=== PATIENT | male | born 1975 | race Caucasian/White ===

== ENCOUNTER 2018-07-01 14:40 | Observation (INO) ==
[2018-07-01] MEDS ORDERED: ONDANSETRON 4 MG/2 ML VIAL IVP ONE (14:52)
[2018-07-01] MEDS ORDERED: MORPHINE SULFATE 2 MG/1 ML IVP ONE ×2 (14:52→18:58)
[2018-07-01] MEDS ORDERED: Lactated Ringers 1,000 ML PRIMARY IV ONE (14:52)
--- NOTE | 2018-07-01 14:57 | PDOC ---
Nausea/Vomiting/Diarrhea HPI - General Chief Complaint: Nausea / Vomiting / Diarrhea Stated Complaint: nausea,vomiting, diarrhea Date Seen by Provider: 07/01/18 Time Seen by Provider: 14:45 Source: POSITIVE: Patient, Spouse Exam Limitations: POSITIVE: No limitations Nurse's Notes Reviewed & Considered: Yes - History of Present Illness Initial Comments: 42 yo male presents to ED with complaint of nausea, vomiting, diarrhea and abdominal pain that started acutely this morning. He denies blood in stool/emesis. Denies fevers/chills. The patient and two [facility] and all three are ill with similar symptoms starting last night. Patient denies urinary complaints. Patient went to clinic this morning with his child and child tested negative for influenza. Patient reports myalgias. No Rashes. Body Location Affected: REPORTS: Abdomen Timing: REPORTS: Abrupt Duration: 4-6 hours Severity: Moderate Quality: REPORTS: Aching, Cramping, Sharpness Abdominal Pain Onset Location: REPORTS: Generalized abdomen Abdominal Pain Radiation: REPORTS: No radiation Context: REPORTS: Rest Associated Symptoms: REPORTS: Vomiting, Diarrhea, Copious Diarrhea, Abdominal Pain, Cramping, Aching, Diffuse Pain Similar Symptoms Previously: No Recent Care Received: REPORTS: Other (Patient diagnosed with diverticulitis at the beginning of month. He has finished his course of levaquin and flagyl about one week ago.) - Patient Home Medications Home Medications: Home Medications aspirin 81 mg tablet,delayed release 81 mg PO QDAY 06/11/18 Hydrocodone/Acetaminophen [[place] 7.5-325 Tablet] 1 - 2 ea PO Q6H PRN #15 tab 06/14/18 Levofloxacin Tab [Levaquin Tab] 750 mg PO DAILY #10 tab 06/14/18 metroNIDAZOLE Tab [Flagyl Tab] 500 mg PO Q8H #21 tab 06/14/18 pantoprazole 40 mg tablet,delayed release 40 mg PO BID 06/14/18 ondansetron HCl 8 mg tablet 8 mg PO TID PRN #10 tab 07/01/18 - Patient Allergies Allergies/Adverse Reactions: Allergies Allergy/AdvReac Type Severity Reaction Status Date / Time Sulfa (Sulfonamide Allergy Unknown HIVES Verified 06/14/18 17:04 Antibiotics) Past Medical History - heen HEENT History: Denies History, Cleft Palate Additional HEENT History: CLEFT PALATE REPAIR A CHILD WITH HARDWARE/CHRONIC SINUSITIS/ CURRENTLY IS BEING TREATED FOR SINUS INFECTION. DR HERR IS AWARE AND IS FINE WITH PROCEEDING WITH SURGERY ON 10/10/12. Cardiovascular History: Angina Additional Cardiovasular History: Had previous chest pain approx. 2 years ago and never found anything but told to take ASA 81 daily Respiratory History: Sleep Apnea Additional Respiratory History: CHRONIC SINUSITIS/ CURRENTLY IS BEING TREATED FOR SINUS INFECTION. DR HERR IS AWARE AND IS FINE WITH PROCEEDING WITH SURGERY ON 10/10/12. Gastrointestinal History: GERD, Diverticulitis Genitourinary History: Kidney Stones Endocrine History: Denies History Musculoskeletal History: Other (please comment) Prosthesis or Implant: Yes ([facility] IN JAW) Additional Musculoskeletal History: Patella dislocation Neurological History: Denies History, Other (please comment) Additional Neurological History: ABOUT A WEEK POST SURGERY PATIENT WENT INTO SHOWER AND PASSED OUT. EMS ALERTED AND RESPONDED. NORMAL BLOOD SUGAR AND HEART WAS NORMAL. PATIENT DID NOT GET TRANSPORTED TO HOSPITAL. THEN ON August WAS ON AN AIRPLANE FOR A 5 HOUR TRIP AND GOT HOT AND HIS KNEE WAS IN SEVERE PAIN AND PASSED OUT. INFOMED DR. HERR'S OFFICE OF THIS HAPPENING. PATIENT DID GO TO [facility] WITHIN A WEEK OF SURGERY DUE TO CALF PAIN DID ULTRASOUND NEGATIVE. DID HAVE HIS CRUTCH FALL OUT OF ARM AND JAR KNEE X2. Blood Disorders: Denies History Psychiatric History: Denies History History of Sexually Transmitted Diseases: No Cancer History: Denies History History of MDRO: No History of Other Communicable Diseases: No Alcohol Use: Rarely In the Past 12 Months, Have Used or Abuse Any Substance: None Previous Surgical History: Yes Type / Date of Surgery: RIGHT KNEE SX AUGUST 27, 2012/ BILAT SHOULDER SCOPE/ JAW SX WITH PLATES AT AGE 22/ LITHOTRIPSY WITH STENTS/ CLEFT PALATE SX A CHILD Anesthesia Reactions: No Malignant Hyperthermia: No Significant Family History: Heart disease Additional Family History: MOTHER- HEART. FATHER- HEART ROS - Limitations ROS Limitations: No Limitations Constitution: REPORTS: Chills, Weakness (generalized weakness and myalgias). DENIES: Fever, Diaphoresis Cardiovascular: REPORTS: Denies Cardiac Symptoms Respiratory: REPORTS: Denies Resp Symptoms Neurological: REPORTS: Confusion, Weakness. DENIES: Dizziness, Fainting Gastrointestinal: REPORTS: Abdominal Pain, Nausea, Vomitting, Diarrhea. DENIES: Black Stools, Bloody Stools, Constipation Endocrine: REPORTS: Denies Symptoms Musculoskeletal: REPORTS: Other (myalgias) Genitourinary: REPORTS: Flank Pain. DENIES: Discharge, Dysuria, Hematuria, Dark Urine, Difficulty Urinating Eyes: REPORTS: Denies Symptoms ENT: REPORTS: Denies Symptoms Skin: REPORTS: Denies Skin Symptoms Lympathic: REPORTS: Denies Lympathic Symptoms Immunologic: POSITIVE: Denies Symptoms Psychiatric: POSITIVE: Confusion. NEGATIVE: Anxiety, Depression, Auditory Hallucinations, Visual Hallucinations Nausea/Vomiting/Diarrhea Exam - General Appearance General Appearance: POSITIVE: Alert, Cooperative, Moderate Distress - HEENT HEENT: POSITIVE: Head Inspection Nml, Eyes Inspection Nml, Ears Inspection Nml, PERRL, EOMI, Dry Mucous Membranes - Neck Neck: POSITIVE: Supple, Normal Inspection - Respiratory Respiratory: POSITIVE: No Respiratory Distress, Breath Sounds Normal, Chest Non- Tender - Cardiovascular Cardiovascular: POSITIVE: Heart Sounds Normal, Tachycardia Peripheral Pulses: Radial (R): 2+, Radial (L): 2+, Dorsalis-pedis (R): 2+, Dorsalis-pedis (L): 2+ - Chest Chest: POSITIVE: Non Tender. NEGATIVE: Ecchymosis, Abrasion, Laceration - Abdomen Abdomen: Soft: (All Quadrants), Normal Bowel Sounds: (All Quadrants), No Splenomegaly: (All Quadrants), No Hepatomegaly: (All Quadrants), No Guarding: (All Quadrants), No Rebound: (All Quadrants), Tenderness Noted: (All Quadrants) - Back Back: POSITIVE: Normal Inspection - Skin Skin: POSITIVE: Intact, Normal For Race, Warm, Dry, No Rash - Extremities Extremity: Non-Tender: (All Extremities), Normal ROM: (All Extremities), Normal Inspection: (All Extremities), Pelvis Stable: (All Extremities) - Neurological / Psychological Neurological: POSITIVE: Affect Apporpriate, Oriented X3, vp biology Normal As Tested, Motor Normal, Sensation Normal N/V/D Progress - Results Reviewed by me Xrays/CTs/US Reviewed by me: Yes Discussed with Radiologist: No Radiology Findings: Acute diverticulitis without perforation nor abscess in sigmoid colon Lab Results Reviewed by Me: Yes CBC and BMP: 07/01/18 14:52 07/01/18 15:01 Lab Results:: Laboratory Results 07/01/18 07/01/18 07/01/18 14:52 15:01 15:10 WBC 9.13 RBC 5.31 Hgb 16.3 Hct 45.9 MCV 86.4 MCH 30.7 MCHC 35.5 RDW Std Deviation 39.6 RDW Coeff of Wero 12.8 Plt Count 294 MPV 10.2 Immature Gran % (Auto) 0.1 Neut % (Auto) 94.0 H Lymph % (Auto) 3.0 L [place] % (Auto) 2.5 L Eos % (Auto) 0.2 Baso % (Auto) 0.2 Immature Gran # (Auto) 0.01 Neut # (Auto) 8.58 Lymph # (Auto) 0.27 Band[place] # (Auto) 0.23 L Eos # (Auto) 0.02 Baso # (Auto) 0.02 WBC Morphology Comment Normal morphology Plt Morphology Comment Normal morphology RBC Morph Comment Normal morphology VBG pH 7.39 VBG pCO2 30 L VBG HCO3 18 L VBG Base Excess -7 L Sodium 140 Potassium 3.7 L Chloride 109 Carbon Dioxide 20 L Anion Gap 11 BUN 20 Creatinine 0.7 Estimated GFR > 60 BUN/Creatinine Ratio 28.57 H Glucose 105 Calculated Osmolality 292.0 Calcium 8.6 L Total Bilirubin 0.8 AST 44 ALT 70 Alkaline Phosphatase 53 Total Protein 7.3 Albumin 4.4 Globulin 2.9 Albumin/Globulin Ratio 1.50 Ur Collection Type Urine Color Urine Clarity Urine pH Ur Specific [place] Urine Protein Urine Glucose (UA) Urine Ketones Urine Occult Blood Urine Nitrate Urine Bilirubin Urine Urobilinogen Ur Leukocyte Esterase Urine RBC Urine WBC Ur Squamous Epith Cells Ur Renal Epithelial Cell Urine Crystals Urine Bacteria Urine Casts Urine Mucus Urine Trichomonas Urine Yeast Ur Culture Indicated? 07/01/18 17:10 WBC RBC Hgb Hct MCV MCH MCHC RDW Std Deviation RDW Coeff of Wero Plt Count MPV Immature Gran % (Auto) Neut % (Auto) Lymph % (Auto) [place] % (Auto) Eos % (Auto) Baso % (Auto) Immature Gran # (Auto) Neut # (Auto) Lymph # (Auto) [place] # (Auto) Eos # (Auto) Baso # (Auto) WBC Morphology Comment Plt Morphology Comment RBC Morph Comment VBG pH VBG pCO2 VBG HCO3 VBG Base Excess Sodium Potassium Chloride Carbon Dioxide Anion Gap BUN Creatinine Estimated GFR BUN/Creatinine Ratio Glucose Calculated Osmolality Calcium Total Bilirubin AST ALT Alkaline Phosphatase Total Protein Albumin Globulin Albumin/Globulin Ratio Ur Collection Type Clean catch urine Urine Color Yellow Urine Clarity Clear Urine pH 5.5 Ur Specific [place] 1.010 Urine Protein Negative Urine Glucose (UA) Negative Urine Ketones Negative Urine Occult Blood Trace-intact H Urine Nitrate Negative Urine Bilirubin Negative Urine Urobilinogen 0.2 Ur Leukocyte Esterase Negative Urine RBC None Urine WBC None Ur Squamous Epith Cells Rare Ur Renal Epithelial Cell None Urine Crystals None Urine Bacteria None Urine Casts None Urine Mucus Rare Urine Trichomonas None Urine Yeast None Ur Culture Indicated? Culture not set - Patient's Progress Pain Medication Addressed: POSITIVE: Yes Re-Examine Comment: patient remains tachycardic despite fluid bolus and pain medications. CT images show diverticulitis without perforation nor abscess. I discussed with patient about possible admission. I feel admission is in patients best interest as he recently had outpatient treatment for diverticulitis less than 3 weeks ago and appears to have a repeat episode today. He and his expressed understanding of this and they are amenable to plan for admission. Status: POSITIVE: Unchanged MDM / ED Course: 42-year-old male presents emergency department with severe abdominal pain, nausea, vomiting and diarrhea. IV line was established by nursing staff. Patient was given a bolus of lactated Ringer's. He was given IV Zofran for nausea and IV morphine for pain. Labs were obtained along with CT scan of the abdomen and pelvis. CT scan of abdomen and pelvis shows acute diverticulitis of the sigmoid colon without perforation nor abscess. Patient was subsequently given IV Rocephin and IV Flagyl he tolerated both these medications well. He continues to be tachycardic despite initial resuscitative efforts. I discussed all results with him and his and discussed potential admission. He is amenable to plan for admission. I feel admission is appropriate for him as he was treated as an outpatient less than 3 weeks ago for acute diverticulitis and appears to have a relapse of the episode now. I subsequently discussed case with Dr. Gonzalez of the hospitalist service and he accepted the patient for admission. Patient was subsequently transferred to the medical floor in stable but guarded condition. - Consult Consult (If Yes, Name of Consulting MD & Time Called): Yes (Dr. Arechiga) Consulting MD will see pt:: POSITIVE: [facility] Admit Counseled: POSITIVE: Patient, Family, RE: Lab Results, RE: Radiology Results, RE: DX, Other (Recommended admission. Patient and agree with plan of care) Patient Care Time - Estimated PCT Patient Care Time (In Minutes): 75 Vital Signs - Recent Vital Signs Vital Signs: Vital Signs (Last 8 hours) Temp Pulse Resp BP Pulse Ox 07/01/18 14:46 98.3 F 121 H 18 107/69 93 - VS Reviewed Vital Signs Reviewed: Yes Discharge Clinical Impression: Abdominal pain, Dehydration, Nausea and vomiting, Diarrhea, Diverticulitis large intestine w/o perforation or abscess w/o bleeding Discharge Disposition: Admit to Observation Condition: Fair Follow Up With: Dave Doss DNP [Primary Care Provider] - Care Transferred To: Dr. Arechiga Date Decision to Admit to Inpatient: 07/01/18 Time Decision to Admit to Inpatient: 18:15
[2018-07-01 15:08] LABS: BASOPHILS # (AUTO) 0.02 10*3/UL; BASOPHILS % (AUTO) 0.2 % (0-1); EOSINOPHILS # (AUTO) 0.02 10*3/UL; EOSINOPHILS % (AUTO) 0.2 % (0-8); Hematocrit [HCT] 45.9 % (42.0-52.0); Hemoglobin [HGB] 16.3 g/dL (14.0-18.0); LYMPHOCYTES # (AUTO) 0.27 10*3/uL; MEAN CORPUSCULAR HEMOGLOBIN 30.7 PG (27-31); MEAN CORPUSCULAR HGB CONC 35.5 g/dL (33-37); MEAN CORPUSCULAR VOLUME 86.4 FL (80-90); MEAN PLATELET VOLUME 10.2 FL (7.4-12.2); MONOCYTES # (AUTO) 0.23 10*3/UL (0.3-0.8); MONOCYTES % (AUTO) 2.5 % (5-15); NEUTROPHILS # (AUTO) 8.58 10*3/UL; RED BLOOD COUNT 5.31 10^6/uL (4.70-6.10)
[2018-07-01 15:12] LABS: PLATELET MORPHOLOGY COMMENT NORMAL MORPHOLOGY (NORM); RBC MORPHOLOGY COMMENT NORMAL MORPHOLOGY (NORM); WBC MORPHOLOGY COMMENT NORMAL MORPHOLOGY (NORM)
[2018-07-01 15:20] LABS: BLOOD UREA NITROGEN 20 mg/dL (7-22); BUN/CREATININE RATIO 28.57 (6-20); SERUM ALBUMIN 4.4 g/dL (3.5-4.8)
[2018-07-01 15:34] LABS: VENOUS PH 7.39 (7.32-7.42)
--- NOTE | 2018-07-01 16:14 | DI ---
CT Abdomen/Pelvis W Contrast,07/01/2018 2:54 PM: Clinical History: Abdominal pain, nausea, vomiting and diarrhea. Previous Exam: June 14, 2018 Findings: Right CT images are obtained through the abdomen and pelvis following intravenous demonstration of co ntrast. Lung bases are clear. The liver demonstrates mild diffuse fatty infiltration. The spleen, pancreas, adrenals and kidneys ar e unremarkable. There is prominence of the proximal appendix which is still within normal limits. The re is no periappendiceal fat stranding nor abscess. The spleen and pancreas are normal. The adrenals and kidneys are unremarkable. The stomach is normal. Small bowel loops are fluid-filled, but nondilated and there is no evidence of obstruction. There are multiple colonic diverticula with a focus of fat stranding in the proximal sigmoid colon wi th some inflammatory changes of the left peritoneal reflection. There is no abscess nor free air. Skeletal structures are unremarkable. Impression: Inflammatory changes involving the proximal sigmoid colon surrounding a sigmoid diverticulum consiste nt with diverticulitis. There is no evidence of abscess nor free air.
[2018-07-01 17:19] LABS: BILIRUBIN,URINE NEGATIVE (NEG); CLARITY,URINE CLEAR (CLEAR); COLOR,URINE YELLOW (Y); GLUCOSE, URINE (UA) NEGATIVE (NEG); OCCULT BLOOD,URINE Trace-intact (NEG); PH,URINE 5.5 (5.0-8.5); PROTEIN,URINE NEGATIVE (NEG); UROBILINOGEN,URINE 0.2 EU/dL (0.2)
[2018-07-01 17:55] LABS: SQUAMOUS EPITHELIAL CELL,UR RARE; URINE SAMPLE TYPE CLEAN CATCH URINE
[2018-07-01] MEDS ORDERED: cefTRIAXone Inj 2 GM in Sodium Chloride 0.9% 100 ML IV ONE (18:07)
[2018-07-01] MEDS ORDERED: metroNIDAZOLE 500mg (Premix) 500 MG/100 ML BAG IV ONE (18:07)
--- NOTE | 2018-07-01 18:54 | PDOC ---
HPI - History of Present Illness History of Present Illness: This very nice 42-year-old gentleman was seen in the ER with nausea vomiting diarrhea and abdominal pain which started this morning denies any fever. No bright red blood per rectum according . CT scan revealed the diverticulitis of the sigmoid colon with some lower back pain and abdominal exams is benign he has been taking the by mouth pain medications at home but these are not working and does not feel well also was tachycardic in the ER. After receiving fluids patient will be admitted for IV fluids potassium replacement and IV antibiotics Past Medical History Medical History: No acute diseases Tobacco Use: Never Smoker Do you dip or chew tobacco: Yes (1can/2days) In the Past 12 Months, Have Used or Abuse Any of the Following Substance: None Medication / Allergies Home Medications: Home Medications Medication Instructions Recorded Confirmed Type aspirin 81 mg tablet,delayed 81 mg PO QDAY 06/11/18 06/14/18 History release Hydrocodone/Acetaminophen [[place] 1 - 2 ea PO Q6H PRN #15 tab 06/14/18 Rx 7.5-325 Tablet] Levofloxacin Tab [Levaquin Tab] 750 mg PO DAILY #10 tab 06/14/18 Rx metroNIDAZOLE Tab [Flagyl Tab] 500 mg PO Q8H #21 tab 06/14/18 Rx pantoprazole 40 mg tablet,delayed 40 mg PO BID 06/14/18 06/14/18 History release ondansetron HCl 8 mg tablet 8 mg PO TID PRN #10 tab 07/01/18 Rx Allergies/Adverse Reactions: Allergies Allergy/AdvReac Type Severity Reaction Status Date / Time Sulfa (Sulfonamide Allergy Unknown HIVES Verified 06/14/18 17:04 Antibiotics) Review of Systems - Review of Systems All Systems: Reviewed & No Additional Complaints Except as Stated - Respiratory Respiratory: DENIES: Negative System Review, Cough, Sputum, Dyspnea At Rest, Dyspnea with Exertion, Pleuritic Pain, Hemoptysis, Wheezing, Other, See HPI - Cardiovascular Cardiovascular: DENIES: Negative System Review, Chest Pain, Edema, Syncope, Palpitations, Orthopnea, Paroxysmal Nocturnal Dyspnea, Other, See HPI - Gastrointestinal Gastrointestinal / Abdominal: REPORTS: Nausea, Vomiting, Diarrhea. DENIES: Bloody Stool Exam - Vitals Vital Signs: Vital Signs Temperature 98.3 F Temperature Source Temporal Artery Scan Pulse Rate [Pulse Oximeter] 121 Respiratory Rate 18 Blood Pressure [Left Arm] 107/69 Pulse Ox 93 Oxygen Delivery Method Room Air Height 5 ft 10 in Weight 210 lb - General General Appearance: No Acute Distress, Cooperative - Head Head Exam: Normal Inspection, Normocephalic, Atraumatic - Eye Eye Exam: POSITIVE: Normal Appearance, PERRL, EOMI, No Scleral Icterus - Respiratory Respiratory Exam: POSITIVE: Clear to Auscultation - Bilaterally, Breathing Non Labored, Normal To Percussion, Normal to Percussion and Palpation - Cardiovascular Cardiovascular Exam: POSITIVE: RRR, No Murmur, No Clicks, No Gallops, No Rubs, PMI Non-Displaced - GI/Abdominal GI/Abdominal Exam: POSITIVE: Normal Bowel Sounds, Non Tender, Non Distended, Soft, No Masses, No Hepatomegaly, No Splenomegaly, No Organomegaly - Extremities Extremities Exam: POSITIVE: No Clubbing Present, No Edema Present, No Cyanosis Present Results - Labs CBC and BMP: 07/01/18 14:52 07/01/18 15:01 Assessment and Plan - Patient Problems (1) Diverticulitis Current Visit: No Status: Acute Comment: Admit patient start Norm lactated Ringer's at 125 an hour replace potassium, start Invanz IV we'll send stool for culture if diarrhea persists clear liquid diet repeat labs in a.m. pain control with IV Dilaudid Code(s): K57.92 - Diverticulitis of intestine, part unspecified, without perforation or abscess without bleeding (2) Dehydration Current Visit: Yes Status: Acute Code(s): E86.0 - Dehydration (3) Nausea and vomiting Current Visit: Yes Status: Acute Code(s): R11.2 - Nausea with vomiting, unspecified
[2018-07-01] MEDS ORDERED: HYDROmorphone 2 MG/1 ML IVP PRN (19:36)
[2018-07-01] MEDS ORDERED: DOCUSATE 100 MG CAPSULE PO PRN (19:36)
[2018-07-01] MEDS ORDERED: CALCIUM CARBONATE 500 MG (TUMS) CHEWABLE TABLET PO PRN (19:36)
[2018-07-01] MEDS ORDERED: LIDOCAINE W/ SODIUM BICARB 0.5 ML SYR SUBD PRN (19:36)
[2018-07-01] MEDS ORDERED: ACETAMINOPHEN 325 MG TABLET PO PRN (19:36)
[2018-07-01] MEDS ORDERED: ONDANSETRON 4 MG/2 ML VIAL IVP PRN (19:36)
[2018-07-01] MEDS ORDERED: Ertapenem Inj 1 GM in Sodium Chloride 0.9% 100 ML IV SCH (19:36)
[2018-07-01] MEDS: Lactated Ringers 1,000 ML PRIMARY IV SCH (20:40)
[2018-07-01] MEDS: HEPARIN 5000 UNIT/1 ML SUBCUT SCH (20:40)
[2018-07-01] MEDS: PANTOPRAZOLE 40 MG TABLET PO SCH (20:55)
[2018-07-01] MEDS: KETOROLAC 15 MG/1 ML VIAL IVP PRN (21:01)
[2018-07-01] MEDS: Acetaminophen 1000mg Inj 1,000 MG/100 ML VIAL IV PRN (23:48)
[2018-07-02] MEDS: KETOROLAC 15 MG/1 ML VIAL IVP PRN (02:56)
[2018-07-02] MEDS: HEPARIN 5000 UNIT/1 ML SUBCUT SCH (03:04)
[2018-07-02 04:30] LABS: BASOPHILS # (AUTO) 0.01 10*3/UL; BASOPHILS % (AUTO) 0.2 % (0-1); EOSINOPHILS # (AUTO) 0.02 10*3/UL; EOSINOPHILS % (AUTO) 0.4 % (0-8); Hematocrit [HCT] 39.9 % (42.0-52.0); Hemoglobin [HGB] 13.9 g/dL (14.0-18.0); MEAN CORPUSCULAR HEMOGLOBIN 30.7 PG (27-31); MEAN CORPUSCULAR HGB CONC 34.8 g/dL (33-37); MEAN CORPUSCULAR VOLUME 88.1 FL (80-90); MEAN PLATELET VOLUME 10.3 FL (7.4-12.2); MONOCYTES # (AUTO) 0.33 10*3/UL (0.3-0.8); MONOCYTES % (AUTO) 6.3 % (5-15); NEUTROPHILS # (AUTO) 4.09 10*3/UL; NEUTROPHILS % (AUTO) 77.9 % (50-80); RED BLOOD COUNT 4.53 10^6/uL (4.70-6.10)
[2018-07-02 04:33] LABS: PLATELET MORPHOLOGY COMMENT NORMAL MORPHOLOGY (NORM); RBC MORPHOLOGY COMMENT NORMAL MORPHOLOGY (NORM); WBC MORPHOLOGY COMMENT NORMAL MORPHOLOGY (NORM)
[2018-07-02 04:39] LABS: BLOOD UREA NITROGEN 13 mg/dL (7-22); BUN/CREATININE RATIO 16.25 (6-20); SERUM ALBUMIN 3.4 g/dL (3.5-4.8)
[2018-07-02] MEDS: Lactated Ringers 1,000 ML PRIMARY IV SCH (06:48)
[2018-07-02 07:44] VITALS: BP 134/70; RESP 16; TEMP 97.8; O2SAT 94
[2018-07-02] MEDS ORDERED: ASPIRIN EC 81 MG TABLET PO SCH (09:00)
[2018-07-02] MEDS: PANTOPRAZOLE 40 MG TABLET PO SCH (09:05)
--- NOTE | 2018-07-02 09:09 | PDOC(PROG) ---
Interval History: Patient is doing a little better compared to yesterday continue IV fluids less pain still has some diarrhea Objective : Data - Labs CBC and BMP: 07/02/18 04:10 07/02/18 04:10 Objective : Exam - General General Appearance: Cooperative - Respiratory Respiratory Exam: Clear to Auscultation - Bilaterally, Breathing Non Labored, Normal To Percussion, Normal to Percussion and Palpation - Cardiovascular Cardiovascular Exam: RRR, No Murmur, No Clicks, No Gallops, No Rubs, PMI Non- Displaced - GI/Abdominal GI/Abdominal Exam: Normal Bowel Sounds, Non Tender, Non Distended, Soft, No Masses, No Hepatomegaly, No Splenomegaly, No Organomegaly Assessment and Plan - Patient Problems (1) Diverticulitis Current Visit: No Status: Acute Comment: Most likely [place] virus as resulted in the GI biofire Code(s): K57.92 - Diverticulitis of intestine, part unspecified, without perforation or abscess without bleeding (2) Dehydration Current Visit: Yes Status: Acute Comment: The IV fluids Code(s): E86.0 - Dehydration (3) Nausea and vomiting Current Visit: Yes Status: Acute Comment: Resolving Code(s): R11.2 - Nausea with vomiting, unspecified
[2018-07-02] MEDS: Acetaminophen 1000mg Inj 1,000 MG/100 ML VIAL IV PRN (09:10)
[2018-07-02] MEDS ORDERED: POTASSIUM CHLORIDE 20 MEQ TAB PO ONE (11:26)
--- NOTE | 2018-07-02 11:26 | DCSUMMARY ---
Hospitalization Summary Hospital Course: Final Discharge Diagnosis: Current Visit Problems Problem Status Onset Code Abdominal pain Acute R10.9 Dehydration Acute E86.0 Nausea and vomiting Acute R11.2 Diarrhea Acute R19.7 Diverticulitis large intestine w/o perforation or abscess w/o bleeding Acute K57.32 Diagnostic Data, Laboratory Data, and Procedures of Signifigance: Laboratory Results 07/01/18 07/01/18 07/01/18 14:52 15:01 15:10 WBC 9.13 RBC 5.31 Hgb 16.3 Hct 45.9 MCV 86.4 MCH 30.7 MCHC 35.5 RDW Std Deviation 39.6 RDW Coeff of Wero 12.8 Plt Count 294 MPV 10.2 Immature Gran % (Auto) 0.1 Neut % (Auto) 94.0 H Lymph % (Auto) 3.0 L Woodruff % (Auto) 2.5 L Eos % (Auto) 0.2 Baso % (Auto) 0.2 Immature Gran # (Auto) 0.01 Neut # (Auto) 8.58 Lymph # (Auto) 0.27 Woodruff # (Auto) 0.23 L Eos # (Auto) 0.02 Baso # (Auto) 0.02 WBC Morphology Comment Normal morphology Plt Morphology Comment Normal morphology RBC Morph Comment Normal morphology VBG pH 7.39 VBG pCO2 30 L VBG HCO3 18 L VBG Base Excess -7 L Sodium 140 Potassium 3.7 L Chloride 109 Carbon Dioxide 20 L Anion Gap 11 BUN 20 Creatinine 0.7 Estimated GFR > 60 BUN/Creatinine Ratio 28.57 H Glucose 105 Calculated Osmolality 292.0 Calcium 8.6 L Total Bilirubin 0.8 AST 44 ALT 70 Alkaline Phosphatase 53 Total Protein 7.3 Albumin 4.4 Globulin 2.9 Albumin/Globulin Ratio 1.50 Ur Collection Type Urine Color Urine Clarity Urine pH Ur Specific [place] Urine Protein Urine Glucose (UA) Urine Ketones Urine Occult Blood Urine Nitrate Urine Bilirubin Urine Urobilinogen Ur Leukocyte Esterase Urine RBC Urine WBC Ur Squamous Epith Cells Ur Renal Epithelial Cell Urine Crystals Urine Bacteria Urine Casts Urine Mucus Urine Trichomonas Urine Yeast Ur Culture Indicated? 07/01/18 07/02/18 07/02/18 17:10 04:10 04:10 WBC 5.25 RBC 4.53 L Hgb 13.9 L Hct 39.9 L MCV 88.1 MCH 30.7 MCHC 34.8 RDW Std Deviation 40.5 RDW Coeff of Wero 12.9 Plt Count 240 MPV 10.3 Immature Gran % (Auto) 0 Neut % (Auto) 77.9 Lymph % (Auto) 15.2 Woodruff % (Auto) 6.3 Eos % (Auto) 0.4 Baso % (Auto) 0.2 Immature Gran # (Auto) 0 Neut # (Auto) 4.09 Lymph # (Auto) 0.80 Woodruff # (Auto) 0.33 Eos # (Auto) 0.02 Baso # (Auto) 0.01 WBC Morphology Comment Normal morphology Plt Morphology Comment Normal morphology RBC Morph Comment Normal morphology VBG pH VBG pCO2 VBG HCO3 VBG Base Excess Sodium 135 Potassium 3.6 L Chloride 104 Carbon Dioxide 25 Anion Gap 6 BUN 13 Creatinine 0.8 Estimated GFR > 60 BUN/Creatinine Ratio 16.25 Glucose 97 Calculated Osmolality 279.0 Calcium 8.0 L Total Bilirubin 0.8 AST 32 ALT 57 Alkaline Phosphatase 44 Total Protein 5.9 L Albumin 3.4 L Globulin 2.5 Albumin/Globulin Ratio 1.30 Ur Collection Type Clean catch urine Urine Color Yellow Urine Clarity Clear Urine pH 5.5 Ur Specific [place] 1.010 Urine Protein Negative Urine Glucose (UA) Negative Urine Ketones Negative Urine Occult Blood Trace-intact H Urine Nitrate Negative Urine Bilirubin Negative Urine Urobilinogen 0.2 Ur Leukocyte Esterase Negative Urine RBC None Urine WBC None Ur Squamous Epith Cells Rare Ur Renal Epithelial Cell None Urine Crystals None Urine Bacteria None Urine Casts None Urine Mucus Rare Urine Trichomonas None Urine Yeast None Ur Culture Indicated? Culture not set History and Physical pertinent to Admission: Course of Hospitalization: This very nice 42-year-old gentleman who comes in with the really not abdominal pain but lower back pain I believe it is referral referred pain from a diverticulitis seen on CAT scan. Patient has a left shift but no white count after antibiotics the left shift resolved. She was the dehydrated and was rehydrated still has a low potassium we will begin him 80 mEq before he leaves the hospital. He feels much better his pain is resolved and will like to be discharged home. He did also have normal iris in his stool on top of diverticulitis I instructed him to keep hydrated I also offered him to stay 1 more day for more IV fluids patient elected to be discharged home his antibiotics was called at [facility] On the date of discharge, the patient was examined: Gen.: No acute distress, alert, nontoxic Heart: Regular rate and rhythm, no murmurs, clicks, gallops, or rubs Lungs: Clear to auscultation bilaterally, breathing is nonlabored Abdomen/GI: Normal tones on auscultation, soft, nontender, nondistended Musculoskeletal/extremities: No clubbing, cyanosis, or edema Vitals reviewed and are listed below Vital Signs (24 hrs) 07/01/18 14:46 07/01/18 19:29 07/01/18 20:08 Temperature 98.3 F 98.7 F 98.3 F Pulse Rate 106 H Pulse Rate [Pulse Oximeter] 121 H 114 H Respiratory Rate 18 24 20 Blood Pressure 112/64 Blood Pressure [Left Arm] 107/69 99/62 Blood Pressure [Right Arm] Pulse Ox 93 93 94 07/01/18 23:43 07/02/18 03:58 07/02/18 07:00 Temperature 98.4 F 97.1 F Pulse Rate Pulse Rate [Pulse Oximeter] 94 80 80 Respiratory Rate 16 18 Blood Pressure Blood Pressure [Left Arm] Blood Pressure [Right Arm] 101/52 112/60 Pulse Ox 92 93 07/02/18 07:43 Temperature 97.8 F Pulse Rate Pulse Rate [Pulse Oximeter] 80 Respiratory Rate 16 Blood Pressure Blood Pressure [Left Arm] Blood Pressure [Right Arm] 134/70 Pulse Ox 94 Assessment and Plan: 1. As per discharge assessments above 2. Disposition: 3. Condition on discharge, stable and improved. 4. Diet: regular diet 5. Activities: resume normal activities 6. Follow-Up: 1. PCP 2. Primary care physician as needed 7. Medications at the Time of Discharge: Home Medications Medication Instructions Recorded Confirmed Type aspirin 81 mg tablet,delayed 81 mg PO QDAY 06/11/18 06/14/18 History release Hydrocodone/Acetaminophen [[place]man 1 - 2 ea PO Q6H PRN #15 tab 06/14/18 Rx 7.5-325 Tablet] pantoprazole 40 mg tablet,delayed 40 mg PO BID 06/14/18 06/14/18 History release ondansetron HCl 8 mg tablet 8 mg PO TID PRN #10 tab 07/01/18 Rx Amoxicill/Clav 875/125mg 1 each PO BID #20 tablet 07/02/18 Rx [Augmentin 875/125mg] 8. Time, care, counseling and coordination of care for this discharge is greater than 30 minutes. Exam - Vitals Vital Signs: Vital Signs Temperature 97.8 F Temperature Source Temporal Artery Scan Pulse Rate [Pulse Oximeter] 80 Pulse Rate 106 Respiratory Rate 16 Blood Pressure [Right Arm] 134/70 Blood Pressure [Left Arm] 99/62 Blood Pressure 112/64 Pulse Ox 94 Oxygen Flow Rate 2 Oxygen Delivery Method Room Air Height 5 ft 10 in Weight 215 lb 9.6 oz Patient Problems - Patient Problem List (1) Diverticulitis Current Visit: No Status: Acute Code(s): K57.92 - Diverticulitis of intestine, part unspecified, without perforation or abscess without bleeding Category: Medical (2) Dehydration Current Visit: Yes Status: Acute Code(s): E86.0 - Dehydration Category: Medical (3) Nausea and vomiting Current Visit: Yes Status: Acute Code(s): R11.2 - Nausea with vomiting, unspecified Category: Medical
== END 2018-07-02 12:09 | disposition home or self-care (01) ==
LOC: MED/SURG 14:40 → ER 14:40 → MED/SURG 19:29
PROVIDERS: ADMIT Internal Medicine; ATTEND Internal Medicine